=== PATIENT | female | born 1975 | race African-American/Black ===

== ENCOUNTER 2021-07-06 06:39 | Emergency (ER) | payer SELFPAY ==
[~2021-07-06] VITALS: Ht 149.9 cm; Wt 88.0 kg
[2021-07-06 06:54] VITALS: BP 125/56
[2021-07-06 09:12] LABS: CLARITY URINE CLOUDY (CLEAR); COLOR URINE ORANGE (YELLOW); KETONES URINE TRACE (NEGATIVE); LEUKOCYTE ESTERASE URINE 1+ (NEGATIVE); NITRITE URINE NEGATIVE (NEGATIVE); OCCULT BLOOD URINE 3+ (NEGATIVE); PROTEIN URINE 2+ (NEGATIVE); SPECIFIC GRAVITY URINE 1.016 (1.005-1.030); UROBILINOGEN URINE 0.2 E.U./dL (0.2-1.0)
[2021-07-06] MEDS ORDERED: NITR-87 MT (10:23)
[2021-07-06] MEDS ORDERED: NA P230E RC (10:23)
[2021-07-06] MEDS ORDERED: MAGN296S31 MT (10:23)
[2021-07-06] MEDS ORDERED: POLY119P2 MT (10:23)
== END 2021-07-06 10:34 | disposition home or self-care (01) ==
LOC: ER 06:39
DX: K59.00 Constipation, unspecified (principal)
CPT/HCPCS: 81003; 81025; 99283